=== PATIENT | male | born 1985 | race Caucasian/White ===

== ENCOUNTER 2017-04-24 03:47 | Emergency (ER) | payer SELFPAY ==
[~2017-04-24] VITALS: Ht 185.4 cm; Wt 77.1 kg
[2017-04-24 03:49] VITALS: BP 146/72
--- NOTE | 2017-04-24 04:01 | NUR ---
PT BIB [facility], PREBOOK. TAKEN TO BED 11
--- NOTE | 2017-04-24 04:05 | NUR ---
Patient being evaluated by physician at bedside.
[2017-04-24 04:10] VITALS: BP 146/72
--- NOTE | 2017-04-24 04:10 | NUR ---
Patient discharged with v/s stable. Written and verbal after care instructions given and explained. Patient verbalized understanding. Police with in custody. All questions addressed prior to discharge. Advised to follow up with [employer]D.
== END 2017-04-24 04:10 ==
LOC: MED 03:47
DX: Z02.89 Encounter for other administrative examinations (principal); V49.40XA Driver injured in collision with unspecified motor vehicles in traffic accident, initial encounter; Y93.89 Activity, other specified; Y92.488 Other paved roadways as the place of occurrence of the external cause; Y99.8 Other external cause status
CPT/HCPCS: 99283